=== PATIENT | female | born 1995 | race Two or more races ===

== ENCOUNTER → 2020-02-05 | Outpatient (CLI) | payer OTHER | END | disposition home or self-care (01) | LOC: OFIC 805 08:45 | PROVIDERS: ATTEND Otolaryngology Otology & Neurotology | DX: H83.8X1 Other specified diseases of right inner ear (principal); R42 Dizziness and giddiness; R22.1 Localized swelling, mass and lump, neck; H69.83 Other specified disorders of Eustachian tube, bilateral ==